=== PATIENT | male | born 2000 | race Caucasian/White ===

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

== ENCOUNTER 2018-03-14 22:56 | Emergency (ER) | payer OTHER ==
[~2018-03-14] VITALS: Ht 167.6 cm; Wt 62.1 kg
[2018-03-14 23:01] VITALS: BP 125/67
== END 2018-03-15 00:12 | disposition home or self-care (01) ==
LOC: ER 22:56
DX: S60.221A Contusion of right hand, initial encounter (principal); F12.90 Cannabis use, unspecified, uncomplicated; Z56.0 Unemployment, unspecified; Z79.899 Other long term (current) drug therapy; W22.01XA Walked into wall, initial encounter; Y93.89 Activity, other specified; Y92.89 Other specified places as the place of occurrence of the external cause; Y99.8 Other external cause status
CPT/HCPCS: 29125; 73130; 99283

== ENCOUNTER 2018-05-27 10:04 | Emergency (ER) | payer OTHER ==
[~2018-05-27] VITALS: Ht 167.6 cm; Wt 65.9 kg
[2018-05-27 10:07] VITALS: BP 119/40
[2018-05-27] MEDS ORDERED: LORA10TA61 PO (10:45)
== END 2018-05-27 11:10 | disposition home or self-care (01) ==
LOC: ER 10:06
DX: S40.861A Insect bite (nonvenomous) of right upper arm, initial encounter (principal); S30.861A Insect bite (nonvenomous) of abdominal wall, initial encounter; S20.469A Insect bite (nonvenomous) of unspecified back wall of thorax, initial encounter; S60.221D Contusion of right hand, subsequent encounter; F12.90 Cannabis use, unspecified, uncomplicated; Z79.899 Other long term (current) drug therapy; Z56.0 Unemployment, unspecified; W57.XXXA Bitten or stung by nonvenomous insect and other nonvenomous arthropods, initial encounter; Y93.89 Activity, other specified; Y92.89 Other specified places as the place of occurrence of the external cause; Y99.8 Other external cause status
CPT/HCPCS: 73130; 99283

== ENCOUNTER 2018-11-25 17:04 | Emergency (ER) | payer MEDICAID ==
[~2018-11-25] VITALS: Ht 167.6 cm; Wt 62.6 kg
[~2018-11-25 17:04] MED LIST changes: +LORA10TA61 PO
[2018-11-25] MEDS ORDERED: ondansetron/PF 4mg/2ml inj IV ONE (17:15)
[2018-11-25] MEDS ORDERED: normal saline 1000ML IV soln IVB ONE (17:15)
[2018-11-25 17:30] LABS: BASOPHILS % (AUTO) 0.2 % (0-1); EOSINOPHILS % (AUTO) 0.3 % (0-6); HEMATOCRIT 43.2 % (42.0-52.0); HEMOGLOBIN 14.8 g/dl (14.0-17.9); LYMPHOCYTES # (AUTO) 1.2 X10'3 (1.1-4.8); LYMPHOCYTES % (AUTO) 11.6 % (21-51); MEAN CORPUSCULAR HGB CONC 34.3 g/dL (33.0-36.5); MEAN CORPUSCULAR VOLUME 93.2 FL (78-98); MONOCYTES # (AUTO) 0.6 X10'3 (0-0.9); MONOCYTES % (AUTO) 5.8 % (2-12); NEUTROPHILS # (AUTO) 8.4 X10'3 (1.8-7.7); NEUTROPHILS % (AUTO) 82.1 % (42-75); PLATELET COUNT 200 X10'3 (140-440); RED BLOOD COUNT 4.63 X10'6 (4.70-6.10); RED CELL DISTRIBUTION WIDTH 13.1 % (11.5-14.5); WHITE BLOOD COUNT 10.2 X10'3 (4.5-11.0)
[2018-11-25] MEDS ORDERED: morphine 4 MG/ML inj SYRINge IV ONE (17:35)
[2018-11-25 17:46] LABS: ALANINE AMINOTRANSFERASE 17 U/L (12-78); ALBUMIN 4.2 G/DL (3.4-5.0); ALBUMIN/GLOBULIN RATIO 1.4 (1.1-1.5); ALKALINE PHOSPHATASE 63 IU/L (20-180); ANION GAP 13 (8-16); ASPARTATE AMINO TRANSFERASE 10 U/L (10-37); BILIRUBIN,TOTAL 0.4 MG/DL (0.1-1.0); BLOOD UREA NITROGEN 10 MG/DL (7-18); BUN/CREATININE RATIO 8.5 (5.4-32.0); CHLORIDE 102 MMOL/L (99-107); CREATININE 1.17 MG/DL (0.60-1.10); GLUCOSE 135 MG/DL (70-104); POTASSIUM 3.7 MMOL/L (3.5-5.1); SODIUM 141 MMOL/L (135-145); TOTAL CARBON DIOXIDE 25.9 MMOL/L (24-32); TOTAL PROTEIN 7.3 G/DL (6.4-8.2); eGFR 79 ML/MIN
[2018-11-25] MEDS ORDERED: proCHLORperazine 10 MG/2 ml inj IV ONE (18:15)
[2018-11-25] MEDS ORDERED: tamsulosin 0.4mg capsule PO STA (18:22)
[2018-11-25 18:23] LABS: CLARITY,URINE CLEAR (Clear); COLOR,URINE YELLOW (Yellow); GLUCOSE, URINE NEGATIVE (Neg); KETONES,URINE TRACE mg/dl (Neg); LEUKOCYTE ESTERASE ,URINE NEGATIVE (Neg); NITRITES, URINE NEGATIVE (Neg); OCCULT BLOOD,URINE LARGE (Neg); PH,URINE 5.5 (4.8-8.0); PROTEIN,URINE TRACE mg/dl (Neg)
[2018-11-25 18:24] LABS: UA COLLECTION TYPE CLN CATCH MIDSTREAM
[2018-11-25] MEDS ORDERED: HYDROmorphone 1 mg/ml syringe IV ONE (18:25)
[2018-11-25] MEDS ORDERED: ketorolac trometh. 30mg/ml inj. IV ONE (18:25)
[2018-11-25 18:29] LABS: BACTERIA,URINE NONE SEEN /HPF (Neg); HYALINE CASTS 0-3 /LPF (NEGATIVE); MUCUS STRANDS FEW /LPF (Neg); SQUAMOUS EPITHELIAL CELL,UR NONE SEEN /LPF (FEW); WBC,URINE 0-4 /HPF (0-4)
[2018-11-25 18:30] LABS: CAL OXALATE CRYSTALS FEW /HPF (NEGATIVE)
[2018-11-25 18:33] VITALS: BP 149/81
--- NOTE | 2018-11-25 18:45 | NUR ---
Patient updated on POC and medicated for his pain. Patient is now sleeping comfortably in bed. Jair Ace requests PO challenge in 20-30 minutes prior to a disposition.
[2018-11-25] MEDS ORDERED: NAPR-56 PO (19:14)
[2018-11-25] MEDS ORDERED: ONDA4TAB6 PO (19:14)
[2018-11-25] MEDS ORDERED: FLO0.4C PO (19:14)
[2018-11-25] MEDS ORDERED: HYDR-4383 PO (19:14)
--- NOTE | 2018-11-25 19:15 | NUR ---
Patient eating and drinking with no difficulty and reports no pain. Patient requests a discharge to try to pass the stone from home.
== END 2018-11-25 19:22 | disposition home or self-care (01) ==
LOC: ER 17:05
DX: N13.2 Hydronephrosis with renal and ureteral calculous obstruction (principal); F12.90 Cannabis use, unspecified, uncomplicated; Z56.0 Unemployment, unspecified; Z79.899 Other long term (current) drug therapy
CPT/HCPCS: 36415; 74176; 80053; 81001; 85025; 96374; 96375; 99284; J0780; J1170; J1885; J2270; J2405; J7030

== ENCOUNTER 2019-12-02 16:03 | Emergency (ER) | payer MEDICAID ==
[~2019-12-02] VITALS: Ht 167.6 cm; Wt 65.0 kg
[~2019-12-02 16:03] MED LIST changes: +HYDR-4383 PO; +ONDA4TAB6 PO
[2019-12-02 16:32] VITALS: BP 131/65
--- NOTE | 2019-12-02 17:19 | NUR ---
See and assessed by provider.
== END 2019-12-02 17:20 | disposition home or self-care (01) ==
LOC: ER 16:03
DX: R09.81 Nasal congestion (principal); F12.90 Cannabis use, unspecified, uncomplicated; Z56.0 Unemployment, unspecified; Z79.899 Other long term (current) drug therapy
CPT/HCPCS: 99281

== ENCOUNTER 2020-05-19 07:39 | Emergency (ER) | payer MEDICAID | END 2020-05-19 08:58 | disposition left against medical advice (07) | LOC: ER 07:40 | DX: R10.9 Unspecified abdominal pain (principal); M54.89 Other dorsalgia; Z53.21 Procedure and treatment not carried out due to patient leaving prior to being seen by health care provider ==

== ENCOUNTER 2020-09-16 07:36 | Emergency (ER) | payer MEDICAID ==
[~2020-09-16] VITALS: Ht 167.6 cm; Wt 65.9 kg
[2020-09-16 09:04] VITALS: BP 105/59
[2020-09-16 09:10] LABS: BASOPHILS % (AUTO) 0.6 % (0-1); EOSINOPHILS # (AUTO) 0.1 X10'3 (0-0.9); EOSINOPHILS % (AUTO) 2.1 % (0-6); HEMATOCRIT 42.3 % (42.0-52.0); HEMOGLOBIN 14.4 g/dl (14.0-17.9); LYMPHOCYTES # (AUTO) 1.3 X10'3 (1.1-4.8); LYMPHOCYTES % (AUTO) 21.5 % (21-51); MEAN CORPUSCULAR HEMOGLOBIN 31.8 PG (27.0-31.0); MEAN CORPUSCULAR HGB CONC 34.2 g/dL (33.0-36.5); MEAN PLATELET VOLUME 8.4 FL (7.4-10.4); MONOCYTES # (AUTO) 0.5 X10'3 (0-0.9); MONOCYTES % (AUTO) 8.7 % (2-12); NEUTROPHILS % (AUTO) 67.1 % (42-75); PLATELET COUNT 159 X10'3 (140-440); RED BLOOD COUNT 4.55 X10'6 (4.70-6.10); RED CELL DISTRIBUTION WIDTH 12.7 % (11.5-14.5); WHITE BLOOD COUNT 5.9 X10'3 (4.5-11.0)
[2020-09-16 09:18] LABS: CLARITY,URINE CLEAR (Clear); COLOR,URINE YELLOW (Yellow); GLUCOSE, URINE NEGATIVE (Neg); KETONES,URINE NEGATIVE (Neg); LEUKOCYTE ESTERASE ,URINE NEGATIVE (Neg); NITRITES, URINE NEGATIVE (Neg); OCCULT BLOOD,URINE NEGATIVE (Neg); PROTEIN,URINE NEGATIVE (Neg); UA COLLECTION TYPE CLN CATCH MIDSTREAM; UROBILINOGEN,URINE 0.2 E.U/dL (0.2-1.0)
[2020-09-16 09:20] LABS: ALANINE AMINOTRANSFERASE 18 U/L (12-78); ALBUMIN 3.7 G/DL (3.4-5.0); ALBUMIN/GLOBULIN RATIO 1.3 (1.1-1.5); ALKALINE PHOSPHATASE 70 IU/L (46-116); ANION GAP 9 (8-16); ASPARTATE AMINO TRANSFERASE 17 U/L (10-37); BILIRUBIN,TOTAL 0.3 MG/DL (0.1-1.0); BLOOD UREA NITROGEN 12 MG/DL (7-18); BUN/CREATININE RATIO 13.6 (5.4-32.0); CALCIUM 8.4 MG/DL (8.5-10.1); CHLORIDE 105 MMOL/L (99-107); CREATININE 0.88 MG/DL (0.60-1.10); GLUCOSE 95 MG/DL (70-104); LIPASE 941 U/L (73-393); POTASSIUM 4.1 MMOL/L (3.5-5.1); SODIUM 142 MMOL/L (135-145); TOTAL CARBON DIOXIDE 28.3 MMOL/L (24-32); TOTAL PROTEIN 6.6 G/DL (6.4-8.2); eGFR > 90 ML/MIN
[2020-09-16] MEDS ORDERED: normal saline 1000ml 1,000 ML IV ONE (10:05)
[2020-09-16] MEDS ORDERED: ketorolac tromethamine 15mg/ml inj. IM ONE (10:10)
[2020-09-16] MEDS ORDERED: ondansetron 4mg rapidly disintigrating tab PO ONE (10:10)
== END 2020-09-16 10:28 | disposition left against medical advice (07) ==
LOC: ER 07:37
DX: K85.90 Acute pancreatitis without necrosis or infection, unspecified (principal); R10.12 Left upper quadrant pain; R11.10 Vomiting, unspecified; R19.7 Diarrhea, unspecified; F17.200 Nicotine dependence, unspecified, uncomplicated; F12.90 Cannabis use, unspecified, uncomplicated; Z87.442 Personal history of urinary calculi; Z56.0 Unemployment, unspecified; Z79.899 Other long term (current) drug therapy
CPT/HCPCS: 36415; 80053; 81003; 83690; 85025; 99283

== ENCOUNTER 2021-03-29 15:05 | Emergency (ER) | payer MEDICAID | END 2021-03-29 16:53 | disposition left against medical advice (07) | LOC: ER 15:06 | DX: K08.89 Other specified disorders of teeth and supporting structures (principal); Z53.21 Procedure and treatment not carried out due to patient leaving prior to being seen by health care provider ==

== ENCOUNTER 2021-11-08 20:04 | Emergency (ER) | payer MEDICAID ==
[~2021-11-08] VITALS: Ht 167.6 cm; Wt 63.0 kg
--- NOTE | 2021-11-08 20:39 | NUR ---
DR SALMON AWARE OF PT. HE WILL PUT IN ORDER FOR IMAGING
[2021-11-08] MEDS: HYDROcodone/acetaminophen 5mg/325mg tablet PO ONE (21:36)
[2021-11-08] MEDS: ondansetron 4mg rapidly disintigrating tab PO ONE (21:36)
[2021-11-08 21:41] VITALS: BP 123/79
[2021-11-08] MEDS ORDERED: HYDR-3965 PO (21:50)
[2021-11-08] MEDS: ketorolac trometh inj. 60 MG/2 ML VIAL IM ONE (21:50)
[2021-11-08] MEDS: ketorolac trometh. 30mg/ml inj. IV ONE (21:50)
== END 2021-11-08 22:20 | disposition home or self-care (01) ==
LOC: ER 20:05
DX: M25.562 Pain in left knee (principal); M54.2 Cervicalgia; F12.90 Cannabis use, unspecified, uncomplicated; Z87.442 Personal history of urinary calculi; Z56.0 Unemployment, unspecified; Z79.899 Other long term (current) drug therapy; V89.2XXA Person injured in unspecified motor-vehicle accident, traffic, initial encounter; Y93.89 Activity, other specified; Y92.89 Other specified places as the place of occurrence of the external cause; Y99.8 Other external cause status
CPT/HCPCS: 70450; 72125; 73564; 96372; 99284; J1885

== ENCOUNTER 2022-04-12 21:41 | Emergency (ER) | payer MEDICAID ==
[~2022-04-12] VITALS: Ht 167.6 cm; Wt 68.2 kg
[2022-04-12 21:45] VITALS: BP 121/74
[2022-04-12] MEDS ORDERED: penicillin V potassium 500mg tablet PO ONE (22:05)
[2022-04-12] MEDS ORDERED: HYDROcodone/acetaminophen 5mg/325mg tablet PO ONE (22:05)
[2022-04-12] MEDS ORDERED: NAPR-56 PO (22:07)
[2022-04-12] MEDS ORDERED: PENI250T2 PO (22:07)
--- NOTE | 2022-04-12 22:39 | NUR ---
scanner in not working. medication and pt verified prior to admistration.
== END 2022-04-12 22:58 | disposition home or self-care (01) ==
LOC: ER 21:42
DX: K04.7 Periapical abscess without sinus (principal); K02.9 Dental caries, unspecified; F17.200 Nicotine dependence, unspecified, uncomplicated; F12.90 Cannabis use, unspecified, uncomplicated; Z87.442 Personal history of urinary calculi; Z56.0 Unemployment, unspecified; Z79.899 Other long term (current) drug therapy
CPT/HCPCS: 99283